=== PATIENT | female | born 1980 | race African-American/Black ===

== ENCOUNTER 2018-10-08 18:33 | Inpatient (IN) | payer SELFPAY ==
[2018-10-08] MEDS ORDERED: methylPREDNISolone NA SUCC 125 MG/2 ML VIAL IVPUSH ONE (18:44)
--- NOTE | 2018-10-08 18:45 | PDOC ---
Rapid Medical Evaluation Chief Complaint: Shortness of Breath Time Seen by Provider: 10/08/18 18:39 Medical Evaluation: Allergies Allergy/AdvReac Type Severity Reaction Status Date / Time shellfish derived Allergy Severe Swelling Verified 10/21/17 17:40 10/08/18 18:39 I have performed a brief in-person evaluation of this patient. The patient presents with a chief complaint of: asthma attack Pertinent physical exam findings: tight/ tripoding - very tight with end exp wheezing. tearful, unable to speak I have ordered the following: DuoNeb x 3, Solumedrol 125mg IVP, The patient will proceed to the ED for further evaluation.- taken to ER Discharge Disposition - Diagnosis Asthma exacerbation - Referrals - Patient Instructions - Post Discharge Activity
[2018-10-08] MEDS: ALBUTEROL SO4 2.5/IPRATROPIUM 0.5 INH SOL 3 ML VIAL.NEB. NEB ONE ×4 (18:50→23:31)
[2018-10-08] MEDS ORDERED: ALBUTEROL SO4 2.5/IPRATROPIUM 0.5 INH SOL 3 ML VIAL.NEB. NEB ONE ×2 (18:53→21:26)
[2018-10-08] MEDS ORDERED: methylPREDNISolone NA SUCC 125 MG/2 ML VIAL ONE (18:54)
[2018-10-08] MEDS ORDERED: MAGNESIUM SULF 50% (8.12 MEQ/2 ML-1 GM VIAL) ONE ×2 (18:54→19:06)
--- NOTE | 2018-10-08 18:54 | PDOC ---
History of Present Illness - General Chief Complaint: Shortness of Breath Stated Complaint: DIFFICULTY BREATHING Time Seen by Provider: 10/08/18 18:39 History Source: Patient - History of Present Illness Initial Comments: 10/08/18 19:03 The patient is a 38 year old female with a PMH of Asthma who presents in respiratory distress. At presentation patient is unable to speak and types on her Iphone "I am having an asthma attack." Shows a bottle of prednisone prescribed last week. As per EMR, patient has evaluated for 1 month h/o uncontrolled asthma in 2016. No other reported PMH. NKDA at that time. Past History - Past Medical History Allergies/Adverse Reactions: Allergies Allergy/AdvReac Type Severity Reaction Status Date / Time shellfish derived Allergy Severe Swelling Verified 10/21/17 17:40 Home Medications: Ambulatory Orders Montelukast Na [Singulair -] 10 mg PO HS 01/10/16 Albuterol 0.083% Nebulizer Zeynep [Ventolin 0.083% Nebulizer Soln -] 1 amp NEB Q6H PRN 10/21/17 Prednisone [Deltasone] 10 mg PO DAILY 10/21/17 Tiotropium [place] [Spiriva] 1 inh PO DAILY 10/08/18 Zyrtec - 5 mg PO DAILY PRN 10/08/18 Anemia: Yes Asthma: No Cancer: No Cardiac Disorders: No COPD: No Diabetes: No HTN: No Psychiatric Problems: Yes (ANXIETY.) Seizures: No Thyroid Disease: No Lung CA: Yes - Surgical History Abdominal Surgery: Yes (LT ECTOPIC: 2009) - Reproductive History (#): 3 Para: 1 Cervical CA: No Ectopic : Yes (lt oofrectomy) Endometrial CA: No Polycystic Ovaries: Yes Therapeutic (s) & number: No Tubal Ligation: No Spontaneous : 1 - Immunization History Immunization Up to Date: Yes - Suicide/Smoking/Psychosocial Hx Smoking Status: No Smoking History: Never smoked Have you smoked in the past 12 months: No Number of Cigarettes Smoked Daily: 0 Hx Alcohol Use: No Drug/Substance Use Hx: No Substance Use Type: Alcohol Hx Substance Use Treatment: No Review of Systems - Review of Systems Able to Perform ROS?: No Comments:: 10/09/18 00:30 Patient in respiratory distress *Physical Exam - Vital Signs Last Vital Signs Temp Pulse Resp BP Pulse Ox 98.2 F 140 H 25 H 105/78 94 L 10/08/18 18:40 10/08/18 18:40 10/08/18 18:40 10/08/18 18:40 10/08/18 18:40 - Physical Exam General Appearance: Yes: Nourished, Appropriately Dressed Neck: positive: Trachea midline, Supple Respiratory/Chest: positive: Other (Diffuse wheezes, poor air movement, no intercostal retractions) Cardiovascular: positive: S1, S2, Tachycardia. negative: Murmur Vascular Pulses: Dorsalis-Pedis (R): 2+, Doralis-Pedis (L): 2+ Gastrointestinal/Abdominal: positive: Normal Bowel Sounds, Soft Extremity: positive: Normal Capillary Refill, Normal Inspection Integumentary: positive: Normal Color, Dry, Warm Neurologic: positive: [employer] II-XII NML intact, Fully Oriented, Alert ED Treatment Course - LABORATORY CBC & Chemistry Diagram: 10/08/18 19:45 10/08/18 19:36 Medical Decision Making - Medical Decision Making 10/08/18 19:05 38 year old female in respiratory distress. Tachycardic (140) and Tachypneic ( 25) at presentation. Mg, IV Solumedrol and Duo Nebs ordered. 10/08/18 19:40 Patient reassessed @ bedside Now verbal, is able to state her name but states she is still too short of breath to speak SpO2 95%, HR 140-150's (s/p Duo Neb x1) 10/08/18 20:32 On repeat HPI patient EKG shows inferior TWI in leads III, aVF, new from previous EKG, however patient persistently tachycardic 10/08/18 22:18 Trial BIPAP with some improvement, however patient not tolerating mask; will use blowback Duo Nebs Repeat EKG pending Will page hospitalist for admission - patient requires close observation for worsening respiratory status 10/08/18 22:28 Repeat EKG shows persistent inferior TWI, however patient still tachycardic likely 2/2 to Duo Nebs Case d/w Dr. Ellis and Dr. Cole, OBS Telemetry Atrovent only nebulizers *DC/Admit/Observation/Transfer Diagnosis at time of Disposition: Asthma exacerbation - Referrals - Patient Instructions - Post Discharge Activity
[2018-10-08] MEDS: MAGNESIUM SULF 50% (8.12 MEQ/2 ML-1 GM VIAL) IVPB ONE ×2 (19:25→23:31)
[2018-10-08 20:14] LABS: BASO % 0.4 % (0-2.0); HEMATOCRIT 43.5 % (32.4-45.2); HEMOGLOBIN 13.8 GM/dL (10.7-15.3); LYMPH % 8.5 % (8-40); MCHC 31.8 g/dl (32.0-36.0); MEAN PLT VOLUME 10.2 fl (7.5-11.1); MONO % 2.6 % (3.8-10.2); NEUT % 88.5 % (42.8-82.8); PLATELET COUNT 245 K/MM3 (134-434); RBC 4.94 M/mm3 (3.60-5.2); WHITE BLOOD COUNT 13.9 K/mm3 (4.0-10.0)
[2018-10-08] MEDS ORDERED: ASPIRIN 325 MG TABLET ONE (20:34)
[2018-10-08] MEDS: ASPIRIN 325 MG TABLET PO ONE ×2 (20:35→23:31)
[2018-10-08 20:39] LABS: ALBUMIN 4.3 g/dl (3.4-5.0); ALK PHOS 29 U/L (45-117); ANION GAP 10 MMOL/L (8-16); BILIRUBIN,TOTAL 0.4 mg/dL (0.2-1); BLOOD UREA NITROGEN 9 mg/dL (7-18); CHLORIDE 108 mmol/L (98-107); CO2 23 mmol/L (21-32); CREATININE 1.1 mg/dL (0.55-1.3); GLUCOSE,RANDOM 118 mg/dL (74-106); N-TERMINAL BNP 64.6 pg/ml (5-125); POTASSIUM 4.2 mmol/L (3.5-5.1); SGOT/AST 15 U/L (15-37); SGPT/ALT 22 U/L (13-61); SODIUM 140 mmol/L (136-145); TOT PROT 8.4 g/dl (6.4-8.2)
[2018-10-08] MEDS ORDERED: MORPHINE SULFATE 2 MG/ML VIAL ONE (20:50)
[2018-10-08] MEDS: morphine CARPU-JECT 2 MG/1 ML DISP.SYRIN IVPUSH ONE ×2 (20:57→23:31)
--- NOTE | 2018-10-08 21:25 | PDOC ---
Documentation entered by Myesha Mckeon SCRIBE, acting as scribe for Alfonso Rodriguez MD. Alfonso Rodriguez MD: This documentation has been prepared by the Mike reveles Daisy, SCRIBE, under my direction and personally reviewed by me in its entirety. I confirm that the documentation accurately reflects all work, treatment, procedures, and medical decision making performed by me. Attending Attestation - Resident Resident Name: Karon Bell - ED Attending Attestation I have performed the following: I have examined & evaluated the patient, The case was reviewed & discussed with the resident, I agree w/resident's findings & plan, Exceptions are as noted - HPI HPI: 10/08/18 19:34 The patient is a 38YOF who presents to the ED with a PMH of asthma who presents to the ER with difficulty breathing. Pt states that she feels like she is having an asthma attack. This episode started yesterday. Denies F/C. Endorses chest tightness. Denies leg swelling. No recent travel/immobilization. No h/o DVT/PE. Allergies: NKDA - Physicial Exam PE: 10/08/18 21:24 "GENERAL: Awake, alert, and fully oriented, in respiratory distress. HEAD: No signs of trauma EYES: PERRLA, EOMI, sclera anicteric, conjunctiva clear ENT: Auricles normal inspection, hearing grossly normal, nares patent, oropharynx clear without exudates. Moist mucosa NECK: Nontender, no stepoffs, Normal ROM, supple, no lymphadenopathy, JVD, or masses LUNGS: + diffuse wheezing with poor air movement HEART: Regular rate and rhythm, normal S1 and S2, no murmurs, rubs or gallops ABDOMEN: Soft, nontender, normoactive bowel sounds. No guarding, no rebound. No masses EXTREMITIES: Normal range of motion, no edema. No clubbing or cyanosis. No cords, erythema, or tenderness NEUROLOGICAL: Cranial nerves II through XII intact. 5/5 strength and sensation in all extremities, Normal speech, normal gait, normal cerebellar function SKIN: Warm, Dry, normal turgor, no rashes or lesions noted. - Critical Care Time Total Critical Care Time: 60 Critical Care Statement: The care of this patient involved high complexity decision making to prevent further life threatening deterioration of the patient 's condition and/or to evaluate & treat vital organ system(s) failure or risk of failure. - Medical Decision Making 10/08/18 21:25 38 F with severe asthma flare. Pt tachypneic and hypoxic upon presentation. - Labs - CXR - Nebs, steroids - BiPAP as needed
[2018-10-08] MEDS: ALBUTEROL SO4 2.5/IPRATROPIUM 0.5 INH SOL 3 ML VIAL.NEB. NEB SCH ×3 (21:27→23:32)
--- NOTE | 2018-10-08 22:41 | HP ---
CHIEF COMPLAINT: Shortness of breath/Wheezing PCP: Dr. Bernard Odell (last seen in July 2018; no medication changes) HISTORY OF PRESENT ILLNESS: 38yo F with mod persistent asthma history who presents for shortness of breath. Pt reports having worsening shortness of breath the past 2 days. Today she felt like she could not breath and could not initially talk as a result. She was seen in the ED to have accessory muscle use, tripod positioning, and inability to talk and had nebulizer treatment, oxygen and eventual BiLevel administered immediately. Pt improved and reports that she's been hospitalized 10 times for asthma with the most recent hospitalization being over 1 year prior. She denies any prior intubations. At home she reports having nebulizer treatments and an albuterol MDI which she does not require more than 1x per week if at all. Pt reports she has been kept on 20mg of Prednisone daily for the past 5 years, however she denies any maintenance ICS at this time. Pt currently is able to speak, however she states she currently feels short of breath. She denies any sick contacts, home triggers such as cleaning supplies or dust, work exposures. She denies any lightheadedness, blurry vision, cough, rhinorrhea, dysphagia, ear pain, palpitations, diarrhea, abdominal pain, dysuria polyuria. 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 ADLs independent. Walks w/o problem Family History: Brother; daughter- Asthma Mom- breast cancer Dad; paternal grandmother- HTN. Allergies shellfish derived Allergy (Severe, Verified 10/21/17 17:40) Swelling facial swelling/hives sores to mouth, lips & tongue HOME MEDICATIONS: Home Medications Medication Instructions Recorded Vitamins (Sjr) - 1 tab PO DAILY tablet 08/25/15 Montelukast Na [Singulair -] 10 mg PO HS 01/10/16 Acetaminophen [Tylenol -] 1,000 mg PO DAILY 10/21/17 Albuterol 0.083% Nebulizer Zeynep 1 amp NEB PRN PRN 10/21/17 [Ventolin 0.083% Nebulizer Soln -] Albuterol Sulfate Inhaler - 1 - 2 inh PO Q4H PRN 10/21/17 [Ventolin Hfa Inhaler -] Prednisone [Deltasone] 20 mg PO DAILY 10/21/17 REVIEW OF SYSTEMS As per HPI PHYSICAL EXAMINATION Vital Signs 10/08/18 10/08/18 10/08/18 18:40 21:02 21:15 Temperature 98.2 F Pulse Rate 140 H Pulse Rate [ 133 H Both] Respiratory 25 H 24 H Rate Blood Pressure 105/78 Blood Pressure 133/99 [Right] O2 Sat by Pulse 94 L 199 H 100 Oximetry (%) GENERAL: Awake, alert, and fully oriented, NAD HEENT: Nc/AT, EOMI, NII, sclera anicteric, MMM, no posterior oropharynx erythema or exudates, no mucosal ulcers, no nasal polyps appreciated NECK: No JVD, no lymphadenopathy LUNGS: Diffuse wheezing throughout, slightly shallow breaths. No accessory muscle use. 96% on RA currently HEART: Tachycardic to 130 on monitor, regular rhythm, no murmurs appreciated, normal S1 and S2 ABDOMEN: Soft, NT/ND, normoactive bowel sounds, no guarding, no rebound, EXTREMITIES: 2+ bounding pulses distally, warm, well-perfused. No cyanosis. No clubbing. No peripheral edema. No calf tenderness PSYCHIATRIC: Slightly anxious, Cooperative. Good eye contact. Appropriate mood and affect. SKIN: Warm, dry, normal turgor, no rashes or lesions noted Laboratory Results 10/08/18 10/08/18 19:36 19:45 WBC 13.9 H RBC 4.94 Hgb 13.8 Hct 43.5 D MCV 88.0 MCH 28.0 MCHC 31.8 L RDW 15.0 Plt Count 245 MPV 10.2 D Absolute Neuts (auto) 12.3 H Neutrophils % 88.5 H D Lymphocytes % 8.5 D Monocytes % 2.6 L Eosinophils % 0.0 D Basophils % 0.4 Nucleated RBC % 0 Sodium 140 Potassium 4.2 Chloride 108 H Carbon Dioxide 23 Anion Gap 10 BUN 9 Creatinine 1.1 Est GFR (CKD-EPI)AfAm 74.28 Est GFR (CKD-EPI)NonAf 64.09 Random Glucose 118 H Calcium 10.0 Total Bilirubin 0.4 AST 15 ALT 22 Alkaline Phosphatase 29 L Creatine Kinase 212 H Creatine Kinase Index 0.6 CK-MB (CK-2) 1.4 Troponin I < 0.02 B-Natriuretic Peptide 64.6 Total Protein 8.4 H Albumin 4.3 ASSESSMENT/PLAN: Severe asthma exacerbation Sinus tachycardia Peak flow 175 best attempt currently; expected 400-450 adjusted for age and height Pt received duonebs x2, mag sulfate 1gm, and solumedrol in ED Continue albuterol 1amp q6-8h PRN for wheezing Solumedrol 40mg qDaily currently Restarted home dose Singulair CXR without significant findings for underlying process Respiratory viral panel ordered NIPPV as needed for worsening status, however would likely due ABG if begins to deteriorate Tachycardia 2/2 to duoneb administration --Currently sinus tachycardia without any significant ischemic findings --Doubt PE at this time FEN: Fluids: None indicated Electrolyte abnormalities: None Nutrition: Can advance diet as pt's breathing improves PPX: DVT - low risk GI - Zantac ordered due to long-standing glucocorticoid use Dispo: Tele observation given peak flow and tachycardia Case discussed Bernard Ellis DO - IM PGY-2 Visit type - Emergency Visit Emergency Visit: Yes Care time: The patient presented to the Emergency Department on the above date and was hospitalized for further evaluation of their emergent condition. - New Patient This patient is new to me today: Yes Date on this admission: 10/08/18 - Critical Care Critical Care patient: No
[2018-10-08] MEDS ORDERED: ALBUTEROL SO4 0.083% IH SOL 2.5 MG/3 ML VIAL.NEB. NEB ONE (22:43)
[2018-10-08] MEDS: ALBUTEROL SO4 0.083% IH SOL 2.5 MG/3 ML VIAL.NEB. NEB PRN (22:46)
[2018-10-08] MEDS ORDERED: MONTELUKAST NA 10 MG TABLET ONE (22:51)
[2018-10-08] MEDS: MONTELUKAST NA 10 MG TABLET PO SCH (22:53)
--- NOTE | 2018-10-08 23:41 | PN ---
Teaching Attending Note Name of Resident: Bernard Ellis ATTENDING PHYSICIAN STATEMENT I saw and evaluated the patient. I reviewed the resident's note and discussed the case with the resident. I agree with the resident's findings and plan as documented. SUBJECTIVE: OBJECTIVE: Peak flow was repeated was 200 (initial was 175) Lungs good air entry diffuse wheezing tachycardia S1 and S2 regular rhythm abdomen soft non-tender no edema PERRLA ASSESSMENT AND PLAN: this is a 38 y/o female patient with severe persistent asthma presented to the hospital with 1 day worsening SOB, wheezing, and non-productive cough, the patient stated that she last time she was hospitalized was in june for an acute asthma exacerbation, she was never intubated. she can complete full sentences however she does get SOB Severe asthma exacerbation Peak flow expected 400-450 adjusted for age and height s/p duonebs x2, MgSO4 1gm, and methylprednisolne in ED Continue albuterol 1amp q4-6hr PRN for wheezing methylpresnisolone 40mg q8hrs c/w montelukast CXR without significant findings for underlying process if the patient deteriorate obtain an ABG and intubate placing the patient on NIPPV can worsen the patient's symptoms Pulmonary consultation medication induced vs Tachycardia 2/2 to duoneb administration --Currently sinus tachycardia without any significant ischemic findings --Doubt PE at this time FEN: Fluids: None indicated Electrolyte abnormalities: None Nutrition: Can advance diet as pt's breathing improves PPX: DVT - low risk GI - Zantac ordered due to long-standing glucocorticoid use Dispo: Tele observation given peak flow and tachycardia
[2018-10-09] MEDS: ALBUTEROL SO4 0.083% IH SOL 2.5 MG/3 ML VIAL.NEB. NEB PRN ×2 (01:50→10:55)
[2018-10-09] MEDS: ACETAMINOPHEN 325 MG TABLET (FP) PO PRN ×2 (02:07→18:00)
[2018-10-09 03:06] VITALS: BMI 34.0
[2018-10-09] MEDS ORDERED: methylPREDNISolone NA SUCC 40 MG/1 ML VIAL IVPUSH SCH ×4 (10:00)
[2018-10-09] MEDS: RANITIDINE HCL 150 MG TABLET (FP) PO SCH (10:46)
--- NOTE | 2018-10-09 11:01 | EKG ---
Test Reason : Blood Pressure : / mmHG Vent. Rate : 138 BPM Atrial Rate : 138 BPM P-R Int : 130 ms QRS Dur : 082 ms QT Int : 286 ms P-R-T Axes : 072 097 -03 degrees QTc Int : 433 ms SINUS TACHYCARDIA RIGHTWARD AXIS NONSPECIFIC T WAVE ABNORMALITY ABNORMAL ECG Confirmed by ARIAS KIRKLAND MD ([id number]) on 10/09/2018 11:01:07 AM Referred By: Confirmed By:ARIAS KIRKLAND MD
--- NOTE | 2018-10-09 12:16 | PN ---
Progress Note (short form) - Note Progress Note: c/o dyspnea at rest, had difficulty eating due to dyspnea and has been placed back on bipap. denies Cp, fever, chills, N/V/C/D has been hospitalized in the past, last one was a year ago, never been intubated Current Medications Generic Name Dose Route Start Last Admin Trade Name Freq PRN Reason Stop Dose Admin Acetaminophen 650 mg 10/09/18 01:29 10/09/18 02:07 Tylenol - PO 650 mg Q4H PRN Administration FEVER Albuterol Sulfate 1 amp 10/08/18 22:32 10/09/18 10:55 Ventolin 0.083% Nebulizer Soln - NEB 1 amp Q8H PRN Administration SHORT OF BREATH/WHEEZING Methylprednisolone Sodium Succinate 40 mg 10/09/18 10:00 10/09/18 10:46 Solu-Medrol - IVPUSH 40 mg BID YANDEL Administration Montelukast Sodium 10 mg 10/09/18 22:00 10/08/18 22:53 Singulair - PO 10 mg HS YANDEL Administration Ranitidine HCl 150 mg 10/09/18 10:00 10/09/18 10:46 Zantac - PO 150 mg DAILY YANDEL Administration Last Vital Signs Temp Pulse Resp BP Pulse Ox 97 F L 94 H 20 120/60 100 10/09/18 10:00 10/09/18 10:00 10/09/18 10:00 10/09/18 10:00 10/09/18 10:55 General NAD CV S1 S2 RRR no murmur/rub/gallop Lungs scattered wheezing, poor inspiratory effort Abdomen soft NT/ND Extremities no pedal edema CBCD WBC 13.9 K/mm3 (4.0-10.0) H 10/08/18 19:45 RBC 4.94 M/mm3 (3.60-5.2) 10/08/18 19:45 Hgb 13.8 GM/dL (10.7-15.3) 10/08/18 19:45 Hct 43.5 % (32.4-45.2) D 10/08/18 19:45 MCV 88.0 fl (80-96) 10/08/18 19:45 MCHC 31.8 g/dl (32.0-36.0) L 10/08/18 19:45 RDW 15.0 % (11.6-15.6) 10/08/18 19:45 Plt Count 245 K/MM3 (134-434) 10/08/18 19:45 MPV 10.2 fl (7.5-11.1) D 10/08/18 19:45 CMP Sodium 140 mmol/L (136-145) 10/08/18 19:36 Potassium 4.2 mmol/L (3.5-5.1) 10/08/18 19:36 Chloride 108 mmol/L (98-107) H 10/08/18 19:36 Carbon Dioxide 23 mmol/L (21-32) 10/08/18 19:36 Anion Gap 10 MMOL/L (8-16) 10/08/18 19:36 BUN 9 mg/dL (7-18) 10/08/18 19:36 Creatinine 1.1 mg/dL (0.55-1.3) 10/08/18 19:36 Calcium 10.0 mg/dL (8.5-10.1) 10/08/18 19:36 Total Bilirubin 0.4 mg/dL (0.2-1) 10/08/18 19:36 AST 15 U/L (15-37) 10/08/18 19:36 ALT 22 U/L (13-61) 10/08/18 19:36 Alkaline Phosphatase 29 U/L (45-117) L 10/08/18 19:36 Total Protein 8.4 g/dl (6.4-8.2) H 10/08/18 19:36 Albumin 4.3 g/dl (3.4-5.0) 10/08/18 19:36 A/P 38yo F wtih PMH asthma presenting with dyspnea and cough and admitted for acute hypoxic respiratory failure due to asthma exacerbation 1. Acute hypoxic respiratory failure due to asthma exacerbation- was placed back on bipap after breakfast due to worsening dyspnea. will increase steroids to q8H, azithromycin, nebs RTC. NPO while requiring bipap. titrate down oxygen requirement as tolerated. 2. leukocytosis- liekly due to stress vs steroids. will monitor. 3. DVT ppx- EAM Visit type - Emergency Visit Emergency Visit: Yes ED Registration Date: 10/08/18 Care time: The patient presented to the Emergency Department on the above date and was hospitalized for further evaluation of their emergent condition. - New Patient This patient is new to me today: Yes Date on this admission: 10/09/18 - Critical Care Critical Care patient: No - Discharge Referral Referred to [facility] No
[2018-10-09] MEDS ORDERED: PT OWN MED DRAWER 7, Y5N ONE (14:36)
[2018-10-09] MEDS: AZITHROMYCIN IVPB 500 MG in DEXTROSE 5%-WATER - 250 ML IVPB SCH (14:54)
[2018-10-09] MEDS: ALBUTEROL SO4 0.083% IH SOL 2.5 MG/3 ML VIAL.NEB. NEB SCH ×2 (16:52→20:25)
[2018-10-09] MEDS: methylPREDNISolone NA SUCC 40 MG/1 ML VIAL IVPUSH SCH (17:51)
[2018-10-09] MEDS: MONTELUKAST NA 10 MG TABLET PO SCH (21:59)
[2018-10-10] MEDS: methylPREDNISolone NA SUCC 40 MG/1 ML VIAL IVPUSH SCH ×3 (02:00→17:08)
--- NOTE | 2018-10-10 07:18 | PN ---
Physical Exam: SUBJECTIVE: Pt reportedly slept well last night. Did use NIPPV intermittently overnight due to feeling slightly increase dyspnea. Over weekend pt had medrol increased to 40q8h for which today is day 2. Denies any cough, fever/chills, abdominal pain, chest pain, palpitations. OBJECTIVE: Vital Signs Period Temp Pulse Resp BP Sys/Pruitt Pulse Ox Last 24 Hr 97 F-98.8 F 67-100 18-20 107-127/51-89 98-100 GENERAL: Awake, alert, and fully oriented, NAD HEENT: Nc/AT, MMM NECK: No JVD, no lymphadenopathy LUNGS: Expiratory wheezing noted greater in bases, however improved since admission. Increased airflow compared to initial day. on NIPPV mask 02/27/30% HEART: Tachycardic to 130 on monitor, regular rhythm, no murmurs appreciated, normal S1 and S2 ABDOMEN: Soft, NT/ND, normoactive bowel sounds, no guarding, no rebound, EXTREMITIES: 2+ pulses distally, warm, well-perfused. No cyanosis. No clubbing. No peripheral edema. No calf tenderness PSYCHIATRIC: Cooperative. Good eye contact. Appropriate mood and affect. SKIN: Warm, dry, normal turgor, no rashes or lesions noted Active Medications Generic Name Dose Route Start Last Admin Trade Name Freq PRN Reason Stop Dose Admin Acetaminophen 650 mg 10/09/18 01:29 10/09/18 18:00 Tylenol - PO 650 mg Q4H PRN Administration FEVER Albuterol Sulfate 1 amp 10/09/18 16:00 10/09/18 20:25 Ventolin 0.083% Nebulizer Soln - NEB 1 amp RQID YANDEL Administration Azithromycin 500 mg/ Dextrose 250 mls @ 250 mls/hr 10/09/18 12:30 10/09/18 14 :54 IVPB 250 mls/hr DAILY YANDEL Administration Methylprednisolone Sodium Succinate 40 mg 10/09/18 18:00 10/10/18 02:00 Solu-Medrol - IVPUSH 40 mg Q8H-IV YANDEL Administration Montelukast Sodium 10 mg 10/09/18 22:00 10/09/18 21:59 Singulair - PO 10 mg HS YANDEL Administration Ranitidine HCl 150 mg 10/09/18 10:00 10/09/18 10:46 Zantac - PO 150 mg DAILY YANDEL Administration ASSESSMENT/PLAN: Acute hypoxic respiratory failure 2/2 to asthma exacerbation Leukocytosis Sinus tachycardia Pt on day 2 of 40mg q8h of Medrol. To continue for today given wheezing, but will reduce tomorrow pending re-evaluation Continue Albuterol PRN Continue Singulair 10mg HS PO ? benefit from LABA on outpatient basis for maintenance Zithromax day 2 currently. To continue Tachycardia resolved; 2/2 to medication vs. anxiety Leukocytosis likely 2/2 to steroid usage NIPPV on standby at bedside to continue; 02/27/30% FEN: Fluids: not indicated Electrolyte abnormalities: None today Nutrition: NPO while on BiPap; otherwise regular diet PPX: DVT - SCDs GI - Zantac 150mg qDaily Dispo: Improving; continue monitoring Case discussed with Dr. Thang Ellis, DO - IM PGY-2 Visit type - Emergency Visit Emergency Visit: Yes ED Registration Date: 10/09/18 Care time: The patient presented to the Emergency Department on the above date and was hospitalized for further evaluation of their emergent condition. - New Patient This patient is new to me today: No - Critical Care Critical Care patient: No
[2018-10-10] MEDS: ALBUTEROL SO4 0.083% IH SOL 2.5 MG/3 ML VIAL.NEB. NEB SCH ×4 (07:48→20:00)
[2018-10-10 09:28] LABS: BASO % 0.1 % (0-2.0); HEMATOCRIT 43.7 % (32.4-45.2); HEMOGLOBIN 13.8 GM/dL (10.7-15.3); LYMPH % 5.1 % (8-40); MCH 28.1 pg (25.7-33.7); MCHC 31.5 g/dl (32.0-36.0); MEAN CELL VOLUME 89.3 fl (80-96); MEAN PLT VOLUME 10.8 fl (7.5-11.1); MONO % 1.8 % (3.8-10.2); PLATELET COUNT 242 K/MM3 (134-434); RDW 15.2 % (11.6-15.6); WHITE BLOOD COUNT 18.7 K/mm3 (4.0-10.0)
[2018-10-10] MEDS ORDERED: AZITHROMYCIN IVPB 500 MG/250 ML BAG IVPB SCH (10:19)
[2018-10-10] MEDS: AZITHROMYCIN IVPB 500 MG in DEXTROSE 5%-WATER - 250 ML IVPB SCH (10:43)
--- NOTE | 2018-10-10 10:44 | PN ---
Teaching Attending Note Name of Resident: Bernard Ellis ATTENDING PHYSICIAN STATEMENT I saw and evaluated the patient. I reviewed the resident's note and discussed the case with the resident. I agree with the resident's findings and plan as documented. SUBJECTIVE:states she remains feeling short of breath at the moment. required bipap overnight she states because of dyspnea. denies Cp, fever, chills, cough, N/V/C/D. OBJECTIVE: Last Vital Signs Temp Pulse Resp BP Pulse Ox 98.1 F 71 18 121/77 99 10/10/18 05:00 10/10/18 05:00 10/10/18 05:00 10/10/18 05:00 10/10/18 07:49 General NAD, speaking in clear sentences CV S1 S2 RRR no murmur/rub/gallop Lungs scattered wheezing. good inspiratory effort ASSESSMENT AND PLAN: 38yo F wtih PMH asthma presenting with dyspnea and cough and admitted for acute hypoxic respiratory failure due to asthma exacerbation 1. Acute hypoxic respiratory failure due to asthma exacerbation-currently 98% on RA. pt appeared comfortable although stated she felt dyspnic during our encounter. will cont current management for now with steroids an Nebs RTC. encouraged patient that she was breathing well and does not require supplemental oxygen at the moment. encouraged OOB and ambulate to assess breathing. is scheduled for polysomography by pulm as outpatient. cont current management. 2. leukocytosis- liekly due to stress vs steroids. will monitor. 3. DVT ppx- EAM 4. can d/c cardiac monitoring
[2018-10-10] MEDS ORDERED: AZITHROMYCIN IVPB 500 MG/250 ML BAG IVPB ONE (10:53)
[2018-10-10] MEDS: RANITIDINE HCL 150 MG TABLET (FP) PO SCH (10:59)
[2018-10-10] MEDS: ACETAMINOPHEN 325 MG TABLET (FP) PO PRN (10:59)
[2018-10-10 11:53] LABS: PLATELET ESTIMATE ADEQUATE
--- NOTE | 2018-10-10 12:37 | EKG ---
Test Reason : Blood Pressure : / mmHG Vent. Rate : 132 BPM Atrial Rate : 132 BPM P-R Int : 128 ms QRS Dur : 084 ms QT Int : 288 ms P-R-T Axes : 076 096 -08 degrees QTc Int : 426 ms SINUS TACHYCARDIA RIGHTWARD AXIS NONSPECIFIC T WAVE ABNORMALITY ABNORMAL ECG WHEN COMPARED WITH ECG OF 08-OCT-2018 20:16, NO SIGNIFICANT CHANGE WAS FOUND Confirmed by ARIAS KIRKLAND MD ([id number]) on 10/10/2018 12:37:09 PM Referred By: Confirmed By:ARIAS KIRKLAND MD
[2018-10-10] MEDS: MONTELUKAST NA 10 MG TABLET PO SCH (21:48)
[2018-10-11] MEDS: methylPREDNISolone NA SUCC 40 MG/1 ML VIAL IVPUSH SCH ×3 (01:16→18:27)
[2018-10-11] MEDS: ALBUTEROL SO4 0.083% IH SOL 2.5 MG/3 ML VIAL.NEB. NEB SCH ×2 (07:50→11:02)
[2018-10-11] MEDS: RANITIDINE HCL 150 MG TABLET (FP) PO SCH (10:29)
--- NOTE | 2018-10-11 11:37 | PN ---
Teaching Attending Note Name of Resident: Chrissy Espinoza ATTENDING PHYSICIAN STATEMENT I saw and evaluated the patient. I reviewed the resident's note and discussed the case with the resident. I agree with the resident's findings and plan as documented. SUBJECTIVE:states no improvement in symptoms. + cough. having some pleuritic CP on deep inspiration. was able to walk to the [facility] yesterday but states she got dyspnic when she got there. denies Cp, fever, chills, N/V/C/D OBJECTIVE: Last Vital Signs Temp Pulse Resp BP Pulse Ox 98.5 F 93 H 20 126/85 99 10/11/18 10:37 10/11/18 10:37 10/11/18 10:37 10/11/18 10:37 10/11/18 07:50 General NAD, speaking in clear sentences CV S1 S2 RRR no murmur/rub/gallop Lungs scattered wheezing. good inspiratory effort ASSESSMENT AND PLAN: 38yo F wtih PMH asthma presenting with dyspnea and cough and admitted for acute hypoxic respiratory failure due to asthma exacerbation 1. Acute hypoxic respiratory failure due to asthma exacerbation-currently 100% on RA. continues to use bipap at night prophylactically because she states her breathing is worse at night. encouraged patient that her oxygen levels are good. cont medrol 40mg Q8H. also now reports she is on symbicort and spiriva at home. will re-start at this time. today day 3 of azithromycin. brijesh d/c. robitussin for cough. encouraged OOB and ambulate to assess breathing. is scheduled for polysomography by pulm as outpatient. cont current management. 2. leukocytosis- liekly due to stress vs steroids. will monitor. 3. DVT ppx- EAM 4. can d/c cardiac monitoring
[2018-10-11] MEDS ORDERED: guaiFENesin 200 MG/10 ML 10 ML UNIT-DOSE CUPS PO PRN (12:34)
--- NOTE | 2018-10-11 12:40 | PN ---
Physical Exam: SUBJECTIVE: Patient seen and examined at bedside- no acute events overnight; patient states that she is still having trouble breathing and wheezing and needs the BIPAP; feels that her asthma attacks are worse at night OBJECTIVE: Vital Signs Period Temp Pulse Resp BP Sys/Pruitt Pulse Ox Last 24 Hr 97.6 F-98.5 F 71-93 18-20 118-133/74-85 96-99 GENERAL: The patient is awake, alert, and fully oriented, in no acute distress. EYES: PEERA; EOMI: no scleral icterus . NECK: no JVD: no lymphadenopathy LUNGS: wheezing anteriorly and posteriorly HEART: Regular rate and rhythm, S1, S2 without murmur, rub or gallop. ABDOMEN: Soft, nontender, nondistended, normoactive bowel sounds, no guarding, no rebound, no hepatosplenomegaly, no masses. EXTREMITIES: 2+ pulses, warm, well-perfused, no edema. PSYCH: Normal mood, normal affect. SKIN: Warm, dry, normal turgor, no rashes or lesions noted Active Medications Generic Name Dose Route Start Last Admin Trade Name Freq PRN Reason Stop Dose Admin Acetaminophen 650 mg 10/09/18 01:29 10/10/18 10:59 Tylenol - PO 650 mg Q4H PRN Administration FEVER Albuterol Sulfate 1 amp 10/09/18 16:00 10/11/18 11:02 Ventolin 0.083% Nebulizer Soln - NEB 1 amp RQID YANDEL Administration Budesonide/Formoterol Fumarate 2 puff 10/11/18 22:00 Symbicort 80/4.5mcg - IH BID YANDEL Guaifenesin 10 ml 10/11/18 12:34 Robitussin - PO Q6H PRN COUGH Azithromycin 500 mg in 250 mls @ 250 mls/hr 10/10/18 10:19 10/11/18 10:28 Zithromax 500mg Ivpb (Pre-Docked) IVPB 250 mls/hr DAILY YANDEL Administration Methylprednisolone Sodium Succinate 40 mg 10/09/18 18:00 10/11/18 10:28 Solu-Medrol - IVPUSH 40 mg Q8H-IV YANDEL Administration Montelukast Sodium 10 mg 10/09/18 22:00 10/10/18 21:48 Singulair - PO 10 mg HS YANDEL Administration Non-Formulary Medication 1 inh 05/20/19 12:45 Tiotropium [place] [Spiriva] PO DAILY [facility] Ranitidine HCl 150 mg 10/09/18 10:00 10/11/18 10:29 Zantac - PO 150 mg DAILY YANDEL Administration ASSESSMENT/PLAN: 38yo F with PMH asthma presenting with dyspnea and cough and admitted for acute hypoxic respiratory failure due to asthma exacerbation #Acute hypoxic respiratory failure 2/2 asthma exacerbation - will c/w current medrol dose of 40 q8H -restarting patients home inhalers of symbicort and spiriva -added robitussin and incentive spirometry -singulair -day 3 of azithromycin -will call patients pulmonolgist dr. lane for further recs #leukocytosis likely 2/2 stress no signs of infectious process F/E/N not on fluids monitor electrolyets regular diet; no eating while on BIPAP Problem List - Problems (1) Asthma exacerbation Code(s): J45.901 - UNSPECIFIED ASTHMA WITH (ACUTE) EXACERBATION Visit type - Emergency Visit Emergency Visit: Yes ED Registration Date: 10/09/18 Care time: The patient presented to the Emergency Department on the above date and was hospitalized for further evaluation of their emergent condition. - New Patient This patient is new to me today: Yes Date on this admission: 10/11/18 - Critical Care Critical Care patient: No
[2018-10-11] MEDS: TIOTROPIUM BROMIDE 2.5 MCG (SPIRIVA) RESPIMAT INHALER IH SCH (14:10)
[2018-10-11] MEDS: ACETAMINOPHEN 325 MG TABLET (FP) PO PRN (14:15)
[2018-10-11] MEDS: ALBUTEROL SO4 0.083% IH SOL 2.5 MG/3 ML VIAL.NEB. NEB PRN (16:52)
[2018-10-11] MEDS ORDERED: PT OWN MED DRAWER 7, Y5N ONE (21:02)
[2018-10-11] MEDS: MONTELUKAST NA 10 MG TABLET PO SCH (21:08)
[2018-10-11] MEDS: BUDESONIDE/FORMETEROL FUMARATE 80/4.5 mcg INHALER IH SCH (21:10)
[2018-10-12] MEDS: methylPREDNISolone NA SUCC 40 MG/1 ML VIAL IVPUSH SCH (01:08)
[2018-10-12 07:39] LABS: CREATININE 0.9 mg/dL (0.55-1.3); POTASSIUM 4.3 mmol/L (3.5-5.1)
[2018-10-12 07:43] LABS: HEMATOCRIT 39.5 % (32.4-45.2); HEMOGLOBIN 12.9 GM/dL (10.7-15.3); MCH 28.4 pg (25.7-33.7); MCHC 32.7 g/dl (32.0-36.0); MEAN CELL VOLUME 87.1 fl (80-96); MEAN PLT VOLUME 9.9 fl (7.5-11.1); PLATELET COUNT 255 K/MM3 (134-434); RBC 4.54 M/mm3 (3.60-5.2); RDW 14.4 % (11.6-15.6); WHITE BLOOD COUNT 15.2 K/mm3 (4.0-10.0)
[2018-10-12] MEDS: ALBUTEROL SO4 0.083% IH SOL 2.5 MG/3 ML VIAL.NEB. NEB PRN (08:00)
[2018-10-12] MEDS ORDERED: NAPH,MB-DB/K PH,MBDB POWDER PACKET PO ONE (08:15)
--- NOTE | 2018-10-12 08:38 | PN ---
Physical Exam: SUBJECTIVE: Patient seen and examined at bedside- no acute events overnight; patient states that she had another attack through the night but feels her breathing is a bit better this morning; she denies any CP/N/V fevers or chills OBJECTIVE: Vital Signs Period Temp Pulse Resp BP Sys/Pruitt Pulse Ox Last 24 Hr 97.9 F-98.8 F 52-104 16-22 126-149/80-98 96-96 GENERAL: The patient is awake, alert, and fully oriented, in no acute distress. EYES: PEERLA: EOMI; no scleral icterus NECK:no JVD: no lymphadenopathy LUNGS: soft wheezes at the B/L bases HEART: Regular rate and rhythm, S1, S2 without murmur, rub or gallop. ABDOMEN: Soft, nontender, nondistended, normoactive bowel sounds, no guarding, no rebound, no hepatosplenomegaly, no masses. EXTREMITIES: 2+ pulses, warm, well-perfused, no edema. PSYCH: Normal mood, normal affect. SKIN: Warm, dry, normal turgor, no rashes or lesions noted Laboratory Results - last 24 hr 10/12/18 06:30 Sodium 135 L Potassium 4.3 Chloride 104 Carbon Dioxide 24 Anion Gap 8 BUN 19 H Creatinine 0.9 Est GFR (CKD-EPI)AfAm 94.67 Est GFR (CKD-EPI)NonAf 81.68 Random Glucose 105 Calcium 9.0 Active Medications Generic Name Dose Route Start Last Admin Trade Name Freq PRN Reason Stop Dose Admin Acetaminophen 650 mg 10/09/18 01:29 10/11/18 14:15 Tylenol - PO 650 mg Q4H PRN Administration FEVER Albuterol Sulfate 1 amp 10/11/18 12:46 10/11/18 16:52 Ventolin 0.083% Nebulizer Soln - NEB 1 amp RQID PRN Administration ASTHMA Budesonide/Formoterol Fumarate 2 puff 10/11/18 22:00 10/11/18 21:10 Symbicort 80/4.5mcg - IH 2 puff BID YANDEL Administration Guaifenesin 10 ml 10/11/18 12:34 10/11/18 14:10 Robitussin - PO 10 ml Q6H PRN Administration COUGH Methylprednisolone Sodium Succinate 40 mg 10/09/18 18:00 05/21/19 01:08 Solu-Medrol - IVPUSH 40 mg Q8H-IV YANDEL Administration Montelukast Sodium 10 mg 10/09/18 22:00 10/11/18 21:08 Singulair - PO 10 mg HS YANDEL Administration Ranitidine HCl 150 mg 10/09/18 10:00 10/11/18 10:29 Zantac - PO 150 mg DAILY YANDEL Administration Tiotropium [place] 2 puff 10/11/18 12:45 10/11/18 14:10 Spiriva Respimat IH 2 puff DAILY YANDEL Administration ASSESSMENT/PLAN: 38yo F with PMH asthma presenting with dyspnea and cough and admitted for acute hypoxic respiratory failure due to asthma exacerbation #Acute hypoxic respiratory failure 2/2 asthma exacerbation - will taper dose of medrol -restarting patients home inhalers of symbicort and spiriva -added robitussin and incentive spirometry -singulair -spoke to dr lane yesterday; will consider starting xolair upon d/c if insurance allows it #leukocytosis likely 2/2 stress no signs of infectious process F/E/N not on fluids monitor electrolyets regular diet; no eating while on BIPAP Problem List - Problems (1) Asthma exacerbation Code(s): J45.901 - UNSPECIFIED ASTHMA WITH (ACUTE) EXACERBATION
[2018-10-12 08:40] VITALS: BP 128/88; PULSE 82; TEMP 98
[2018-10-12] MEDS: BUDESONIDE/FORMETEROL FUMARATE 80/4.5 mcg INHALER IH SCH (10:02)
[2018-10-12] MEDS: RANITIDINE HCL 150 MG TABLET (FP) PO SCH (10:02)
[2018-10-12] MEDS: TIOTROPIUM BROMIDE 2.5 MCG (SPIRIVA) RESPIMAT INHALER IH SCH (10:03)
[2018-10-12] MEDS ORDERED: predniSONE 20 MG TABLET (UD) PO ONE (11:00)
[2018-10-12] MEDS ORDERED: CYCLOBENZAPRINE HCL 10 MG TABLET (FP) PO ONE (11:40)
--- NOTE | 2018-10-12 11:52 | PN ---
Teaching Attending Note Name of Resident: Chrissy Espinoza ATTENDING PHYSICIAN STATEMENT I saw and evaluated the patient. I reviewed the resident's note and discussed the case with the resident. I agree with the resident's findings and plan as documented. SUBJECTIVE: Feels much improved, less SOB. No CP. No fever/chills/sputum/ hemoptysis. OBJECTIVE: Afebrile, Hemodynamically Stable. Last Vital Signs Temp Pulse Resp BP Pulse Ox 98 F 82 17 128/88 96 10/12/18 08:39 10/12/18 08:39 10/12/18 08:39 10/12/18 08:39 10/11/18 20:25 HEENT - Atraumatic, Normocephalic. Heart - S1, S2, RRR Lungs - trace wheeze. Good air entry bilaterally Abdomen - Soft, non-tender. Bowel Sounds normal. Extremities - no edema, no calf tenderness Laboratory Results - last 24 hr 10/12/18 10/12/18 06:30 06:30 WBC 15.2 H RBC 4.54 Hgb 12.9 Hct 39.5 MCV 87.1 MCH 28.4 MCHC 32.7 RDW 14.4 Plt Count 255 MPV 9.9 Sodium 135 L Potassium 4.3 Chloride 104 Carbon Dioxide 24 Anion Gap 8 BUN 19 H Creatinine 0.9 Est GFR (CKD-EPI)AfAm 94.67 Est GFR (CKD-EPI)NonAf 81.68 Random Glucose 105 Calcium 9.0 Current Medications Generic Name Dose Route Start Last Admin Trade Name Freq PRN Reason Stop Dose Admin Acetaminophen 650 mg 10/09/18 01:29 10/11/18 14:15 Tylenol - PO 650 mg Q4H PRN Administration FEVER Albuterol Sulfate 1 amp 10/11/18 12:46 10/12/18 08:00 Ventolin 0.083% Nebulizer Soln - NEB 1 amp RQID PRN Administration ASTHMA Budesonide/Formoterol Fumarate 2 puff 10/11/18 22:00 10/12/18 10:02 Symbicort 80/4.5mcg - IH 2 puff BID YANDEL Administration Cyclobenzaprine HCl 10 mg 10/12/18 11:40 Flexeril - PO 10/12/18 11:41 ONCE ONE Guaifenesin 10 ml 10/11/18 12:34 10/11/18 14:10 Robitussin - PO 10 ml Q6H PRN Administration COUGH Montelukast Sodium 10 mg 10/09/18 22:00 10/11/18 21:08 Singulair - PO 10 mg HS YANDEL Administration Ranitidine HCl 150 mg 10/09/18 10:00 10/12/18 10:02 Zantac - PO 150 mg DAILY YANDEL Administration Tiotropium [place] 2 puff 10/11/18 12:45 10/12/18 10:03 Spiriva Respimat IH 2 puff DAILY YANDEL Administration ASSESSMENT AND PLAN: 38 year old female with history of Asthma (steroid dependent) presented with dyspnea and cough, admitted for acute hypoxic respiratory failure due to asthma exacerbation. 1. Acute hypoxic respiratory failure secondary to Acute Asthma Exacerbation, resolved - currently SpO2 98% on RA. Transition from IV Methylpred to oral prednisone. Patient chronically on oral steroids (Pred 10mg) - will discharge on Pred 40mg until Pulm follow up next week for further instructions on slow taper. Continue Home Bronchodilator Nebs, Singulair, Symbicort and Spiriva 2. Leukocytosis - sec to steroid. No evidence of infection focus. Medically stable for discharge with Pulm follow up.
--- NOTE | 2018-10-12 12:10 | DS ---
Physical Exam: SUBJECTIVE: Patient seen and examined at bedside- no acute events overnight; patient states that she had another attack through the night but feels her breathing is a bit better this morning; she denies any CP/N/V fevers or chills OBJECTIVE: Vital Signs Period Temp Pulse Resp BP Sys/Pruitt Pulse Ox Last 24 Hr 97.9 F-98.8 F 52-104 16-22 128-149/80-98 96 PHYSICAL EXAM GENERAL: The patient is awake, alert, and fully oriented, in no acute distress. EYES: PEERLA: EOMI; no scleral icterus NECK:no JVD: no lymphadenopathy LUNGS: soft wheezes at the B/L bases HEART: Regular rate and rhythm, S1, S2 without murmur, rub or gallop. ABDOMEN: Soft, nontender, nondistended, normoactive bowel sounds, no guarding, no rebound, no hepatosplenomegaly, no masses. EXTREMITIES: 2+ pulses, warm, well-perfused, no edema. PSYCH: Normal mood, normal affect. SKIN: Warm, dry, normal turgor, no rashes or lesions noted LABS Laboratory Results - last 24 hr 10/12/18 10/12/18 06:30 06:30 WBC 15.2 H RBC 4.54 Hgb 12.9 Hct 39.5 MCV 87.1 MCH 28.4 MCHC 32.7 RDW 14.4 Plt Count 255 MPV 9.9 Sodium 135 L Potassium 4.3 Chloride 104 Carbon Dioxide 24 Anion Gap 8 BUN 19 H Creatinine 0.9 Est GFR (CKD-EPI)AfAm 94.67 Est GFR (CKD-EPI)NonAf 81.68 Random Glucose 105 Calcium 9.0 Imaging: CXR clear lungs; no acute pathology HOSPITAL COURSE: Date of Admission:10/09/18 38yo F with mod persistent asthma history who presents for shortness of breath. Pt reports having worsening shortness of breath the past 2 days. Today she felt like she could not breath and could not initially talk as a result. She was seen in the ED to have accessory muscle use, tripod positioning, and inability to talk and had nebulizer treatment, oxygen and eventual BiLevel administered immediately. Pt improved and reports that she's been hospitalized 10 times for asthma with the most recent hospitalization being over 1 year prior. She denies any prior intubations. At home she reports having nebulizer treatments and an albuterol MDI which she does not require more than 1x per week if at all. Pt reports she has been kept on 20mg of Prednisone daily for the past 5 years, however she denies any maintenance ICS at this time Pt currently is able to speak, however she states she currently feels short of breath. She denies any sick contacts, home triggers such as cleaning supplies or dust, work exposures. She denies any lightheadedness, blurry vision, cough, rhinorrhea, dysphagia, ear pain, palpitations, diarrhea, abdominal pain, dysuria polyuria. Of note pt has seasonal allergies for which she has been taking Zyrte ER course was notable for: (1) NIPPV, Duoneb x2, MgSulf 1gm, Solumedrol dose (2) CXR w/o any underlying pathology (3) ECG - Sinus tachycardia, no MANDY/STD, no T-wave abnormality, no patient was started on solumedrol 40 q8H; patient was on placed on BIPAP as said that she had been having numerous attacks throughout the night; she was also restarted on her home inhalers of spiriva and symbicort in addition to montelukast- she remained on that solumedrol dose for 3 days; she started to feel better; we switched to oral 60 mg fo prednisone; she was discharged home on 40mg of prednisone for 6 days with a follow up to see dr. odell Date of Discharge: 10/12/18 Minutes to complete discharge: 35 Discharge Summary Reason For Visit: TACHYCARDIA,ASTHMA Current Active Problems Asthma exacerbation (Acute) Condition: Stable - Instructions Diet, Activity, Other Instructions: You came to the emergency room with complaints of worsening shortness of breath secondary to your asthma. We treated you with IV steroids and your symptoms improved. We will be sending you home with oral steroids.You are stable to be discharged home. Please continue all of your home medications in addition: please take Prednisone 40mg once a day starting tomorrow until you follow up with Dr. Odell on Thursday for further instructions regarding steroid taper. Continue Home Nebulizers, inhalers and Singulair. Please follow up Dr. Krause within one week Please follow up with Dr. Odell within one week *if you begin to experience worsening shortness of breath, chest pains, nausea/ vomiting please return to the emergency room immediately Referrals: Ashu Krause MD [Staff Physician] - 1 Week Bernard Odell MD [Staff Physician] - 1 Week Disposition: HOME - Home Medications Comprehensive Discharge Medication List: Ambulatory Orders Montelukast Na [Singulair -] 10 mg PO HS 01/10/16 Albuterol 0.083% Nebulizer Zeynep [Ventolin 0.083% Nebulizer Soln -] 1 amp NEB Q6H PRN 10/21/17 Prednisone [Deltasone] 10 mg PO DAILY 10/21/17 Tiotropium [place] [Spiriva] 1 inh PO DAILY 10/08/18 Zyrtec - 5 mg PO DAILY PRN 10/08/18 Albuterol 0.083% Nebulizer Zeynep [Ventolin 0.083% Nebulizer Soln -] 1 amp NEB RQID PRN #1 amp 10/12/18 predniSONE [Deltasone -] 40 mg PO DAILY #6 tablet 10/12/18 Problem List - Problems (1) Asthma exacerbation Code(s): J45.901 - UNSPECIFIED ASTHMA WITH (ACUTE) EXACERBATION This patient is new to me today: No Emergency Visit: Yes ED Registration Date: 10/09/18 Care time: The patient presented to the Emergency Department on the above date and was hospitalized for further evaluation of their emergent condition. Critical Care patient: No - Discharge Referral Referred to [facility] Med [facility] No
== END 2018-10-12 14:41 | disposition home or self-care (01) | DRG 141 ==
LOC: JER 18:33 → JERBED 22:39 → J4W 10-09 01:14 → OBSVTOIN 10-09 12:10 → J4S 10-10 04:31
PROVIDERS: ADMIT Internal Medicine
PROC: 5A09457 Assistance with Respiratory Ventilation, 24-96 Consecutive Hours, Continuous Positive Airway Pressure (ICD-10-PCS; principal; 2018-10-09)
DX: J45.41 Moderate persistent asthma with (acute) exacerbation (principal); R00.0 Tachycardia, unspecified; J96.01 Acute respiratory failure with hypoxia; D72.829 Elevated white blood cell count, unspecified
CPT/HCPCS: 36415; 71045-TC-FY; 80048; 80053; 82550; 82553; 83880; 84484; 85025; 85027; 87633; 93005; 93010; 94010; 94640; 94660; 99282-25; G0378